=== PATIENT | male | born 1955 | race Caucasian/White ===

== ENCOUNTER 2018-11-28 13:30 | Observation (INO) | payer MEDICARE, BC ==
[~2018-11-28] VITALS: Ht 167.6 cm; Wt 90.0 kg
[~2018-11-28 13:30] MED LIST: ASPI-1044 PO; BLOO1EAC85 MC; DOCU-144 PO; GLIP2.5T3 PO; LANC1COM MC; METF500T9 ORAL; SERT25TA83 ORAL; VALS160T27 ORAL
[2018-12-05] VITALS (25 sets, daily range): BP systolic 105–158; BP diastolic 61–94; PULSE 67–96; RESP 8–18; Ht 167.6 cm; Wt 90.0 kg
[2018-12-05] MEDS ORDERED: LANSOPRAZOLE 30 MG CAP PO ONE (06:00)
[2018-12-05] MEDS ORDERED: DEXAMETHASONE 4 MG/ML 1 ML INJ IV ONE (06:00)
[2018-12-05] MEDS ORDERED: ACETAMINOPHEN 500 MG TAB PO ONE (06:00)
[2018-12-05] MEDS ORDERED: oxyCODONE (CR) 10 MG TAB [oxyCONTIN] PO ONE (06:00)
[2018-12-05] MEDS ORDERED: CEFAZOLIN 1 GM/50 ML (PMX) 50 ML IVPB SCH (06:00)
[2018-12-05] MEDS ORDERED: LACTATED RINGER'S 1,000 ML IV SCH (06:00)
[2018-12-05] MEDS ORDERED: TRANEXAMIC ACID 1GM/100ML(PMX) 100 ML PRE-OP X1 IVPB SCH (06:00)
[2018-12-05] MEDS ORDERED: ONDANSETRON 4 MG INJ IV ONE (06:00)
--- NOTE | 2018-12-05 06:21 | HPN ---
Date/Time of Note Date/Time of Note DATE: 12/05/18 TIME: 06:21 Interval H&P Admission Note Pt. seen H&P reviewed: No system changes LIZZY ROMAN MD Dec 05, 2018 06:21
[2018-12-05] MEDS ORDERED: ACETAMINOPHEN 1000MG/100ML IV 100 ML IVPB ONE (06:30)
[2018-12-05] MEDS ORDERED: BACITRACIN 50000 UNITS INJ ONE (06:56)
[2018-12-05] MEDS ORDERED: POLYMYXIN B 500000 UNIT INJ ONE (06:57)
[2018-12-05] MEDS ORDERED: TRANEXAMIC ACID 1GM/100ML(PMX) 200 ML ONE (07:10)
[2018-12-05] MEDS: SOD CHLORIDE 0.9% 1,000 ML IV SCH ×2 (07:29→12:10)
--- NOTE | 2018-12-05 07:38 | PREAC ---
Date/Time of Note Date/Time of Note DATE: 12/05/18 TIME: 07:36 Anesthesia Eval and Record Evaluation Time Pre-Procedure Interview DATE: 12/05/18 TIME: 07:36 Age 63 Sex male NPO: 8 hrs Preoperative diagnosis ostearitis knee Planned procedure replacement Past Medical History Past Medical History: Includes Cardio: HTN Endo: Diabetes Musculoskeletal: Other (sporiasis ) Psych: Depression, Anxiety Surgery & Anesthesia Issues No known issue Meds Anticoagulation: No Beta Marry within 24 hr: No Reason Beta Marry not given: Pt. not on B-Marry Reported Medications Metformin Hcl (Metformin Hcl ER) 500 Mg Tab.er.24h, 1 TAB ORAL DAILY 12/05/18 Valsartan (Valsartan) 160 Mg Tablet, 1 TAB ORAL DAILY 12/05/18 Sertraline Hcl* (Sertraline Hcl*) 25 Mg Tablet, 1 TAB ORAL DAILY 12/05/18 Current Medications Cefazolin Sodium 50 ml @ 100 mls/hr PRE-OP IVPB ; Start 12/05/18 at 06:00; Stop 12/05/18 at 16:00 Tranexamic Acid 100 ml @ 220 mls/hr PRE-OP IVPB ; Start 12/05/18 at 06:00; Stop 12/05/18 at 16:00 Tranexamic Acid 100 ml @ 200 mls/hr INTRA-OP IVPB ; Start 12/05/18 at 10:00; Stop 12/05/18 at 16:00 Ropivacaine/ Morphine Sulfate/ Clonidine/ Epinephrine/ Ketorolac Tromethamine/ Vancomycin HCl/ Sodium Chloride INTRA-OP INJ ; Start 12/05/18 at 09:00; Stop 12/05/18 at 16:00 Sodium Chloride 1,000 ml @ 125 mls/hr Q8H IV Last administered on 12/05/18at 07:29; Admin Dose 125 MLS/HR; Start 12/05/18 at 07:30 Meds reviewed: Yes Allergies Coded Allergies: No Known Allergy (Unverified , 12/05/18) Allergies Reviewed: Yes Labs/Studies Labs Reviewed: Reviewed by anesthesiologist test: N/A Pre-procedure Exam Last vitals Vital Signs Date Temp Pulse Resp B/P (MAP) Pulse Ox O2 O2 Flow FiO2 Time Delivery Rate 12/05/18 97.4 67 16 158/94 96 Room Air 07:02 (115) Airway: Adequate mouth opening, Adequate thyromental dist Mallampati: Mallampati III Teeth: Normal Lung: Normal Heart: Normal ASA Physical Status ASA physical status: 3 Emergency: None Pre-operative Attestations Prior to commencing anesthesia and surgery, the patient was re-evaluated, there was verification of: *The patient's identity *The results of appropriate recent lab work and preoperative vital signs *The above evaluation not changing prior to induction *Anesthetic plan, risk benefits, alternative and complications discussed with patient/family; questions answered; patient/family understands, accepts and wishes to proceed. JAI WORLEY DO Dec 05, 2018 07:37
[2018-12-05] MEDS ORDERED: FENTAnyl 50 MCG/ML VIAL ONE (07:46)
[2018-12-05] MEDS ORDERED: ETOMIDATE 20 MG INJ ONE (07:46)
[2018-12-05] MEDS ORDERED: MIDAZOLAM 1 MG/ML 2 ML INJ ONE (07:46)
[2018-12-05] MEDS ORDERED: LIDOCAINE 2% (SDV) 5 ML INJ ONE (07:46)
[2018-12-05] MEDS ORDERED: PROPOFOL 20 ML ONE (07:46)
[2018-12-05] MEDS ORDERED: CEFAZOLIN 1 GM INJ ONE (08:00)
[2018-12-05] MEDS ORDERED: HIP PAIN COCKTAIL VANCO INJ SCH ×7 (09:00)
[2018-12-05] MEDS ORDERED: HIP PAIN COCKTAIL (CEFUROXIME) INJ SCH ×7 (10:00)
[2018-12-05] MEDS ORDERED: TRANEXAMIC ACID 1GM/100ML(PMX) 100 ML INTRA-OP X1 IVPB SCH (10:00)
--- NOTE | 2018-12-05 10:12 | SIPON ---
Date/Time of Note Date/Time of Note DATE: 12/05/18 TIME: 10:10 Operative Report Preoperative Diagnosis Left Knee Osteoarthritis Postoperative Diagnosis Same Operation/Procedure Performed Left Total Knee Arthroplasty Surgeon Andreia Hunt MD dental hygiene administrative assistant Nelly Pruitt PA-C Anesthesia: spinal, epidural Estimated blood loss: other Transfusion Required none Specimen Bone Grafts/Implants none Complications none ANDREIA HUNT MD Dec 05, 2018 10:12
--- NOTE | 2018-12-05 10:19 | OPR ---
Date/Time of Note Date/Time of Note DATE: 12/05/18 TIME: 10:16 Operative Report Free Text/Dictation DATE OF OPERATION: December 05, 2018 SURGEON: Lizzy Roman MD MOBILITY SPECIALIST: Nelly Pruitt PA-C PREOPERATIVE DIAGNOSIS: Left knee osteoarthritis. POSTOPERATIVE DIAGNOSIS: Left knee osteoarthritis. PROCEDURES PERFORMED: Left total knee arthroplasty, CPT code 80874. ANESTHESIOLOGIST: Dr. Donahue ANESTHESIA: Spinal. ESTIMATED BLOOD LOSS: 200 mL. COMPLICATIONS: None. SPECIMENS: Resected bone. DISPOSITION: PACU in stable condition. TOURNIQUET TIME: 86 minutes at 250 mmHg. IMPLANT USED: Gottlieb [employer] Nephew size 6 Anne tibial baseplate, size 6 standard posterior stabilized Oxinium femur, size 9 mm high flexion polyethylene, size 35 mm patella. INDICATION FOR PROCEDURE: This is an 63-year-old male with end-stage osteoarthritis of the left knee who had failed nonoperative management. Risks, benefits, alternatives of surgical intervention were discussed with the patient and informed consent was obtained. The risks of surgery include but are not limited to infection, deep venous thrombosis, pulmonary embolism, damage to nerves and blood vessels, numbness around incision site, stiffness of knee, need for total knee manipulation under anesthesia, need for blood transfuion, heart attack, stroke, risks associated with anesthesia, implant loosening, wear of prosthesis, need for revision surgery, and . DESCRIPTION OF PROCEDURE: The patient was met in the preoperative suite. The correct operative site was confirmed and marked. The patient was then brought into operating room. After induction of anesthesia, the patient was placed in the supine position on the operating room table. A tourniquet was applied to left upper thigh. The left lower extremity was prepped and draped in the usual sterile fashion. Before starting, a timeout was taken to identify the correct operative site and confirm preoperative antibiotics consisting of 1 g of IV Ancef, along with 1 g of tranexamic acid were administered. At this point, the left leg was elevated and exsanguinated with an Esmarch and tourniquet was then insufflated for the above noted time. A midline incision was made and median parapatellar arthrotomy was then completed. The lateral patellar retinacular ligaments were released. A sleeve of tissue was released from the medial proximal tibia. The cruciate ligaments and the menisci were then excised. At this point, the custom distal femur cutting block was then pinned and 9.5 mm was resected from the distal femur. The 4-in-1 cutting block, size 6 was then placed. An maria teresa wing was used to confirm that notching of the anterior cortex of the femur would not occur. The anterior and posterior condylar cuts were completed followed by the anterior and posterior chamfer cuts. The osteophytes were then removed with a rongeur. At this point, the tibia was subluxed anteriorly. Appropriate retractors were placed. The custom tibial cutting block was then pinned. The drop was used to ensure the correct alignment. Approximately 11 mm was resected off the lateral tibial plateau and to mm off the medial tibial plateau. Osteophytes were then removed. At this point, the flexion extension gaps were checked with a 9 mm gap tool checker and noted to be tight in extension. Additional 2 mm of distal femur was removed, and additional medial release was performed. Next, trial 6 standard femur was then pinned and the box cut was then completed. The tibia was then subluxed anteriorly and measured to size 6. The tibial tray was then pinned and a keel was then punched. The trial components were placed with a 9 mm polyethylene and noted to have full extension and greater than 120 degrees of flexion. The patella was then subluxed laterally and sized to 24 mm. Approximately, 9 mm was resected. The patellar was sized to a 35 mm. The button was placed and noted to have excellent patellar tracking. The trial components were removed. All bony surfaces were pulse lavaged and dried. The appropriate size components were then cemented and the knee was held in extension with a 9 mm trial polyethylene until the cement cured. Once the cement had cured, the trial polyethylene was removed and the appropriate size polyethylene was then placed. The tranexamic acid was redosed. The cocktail was then injected. The extensor mechanism was closed using #1 Stratafix and the subcutaneous tissue with 2-0 Vicryl and the skin with 4-0 Monocryl. Steri- Strips were applied along with a sterile dressing. There were no complications. The patient was transferred to PACU in stable condition. POSTOPERATIVE CARE: The patient will be weightbearing as tolerated. The patient will work with physical therapy, and will receive two additional doses of IV antibiotics along with aspirin 81 mg p.o. b.i.d. for 6 weeks. Upon discharge, patient will follow up in my office within 2 weeks postoperatively. LIZZY ROMAN MD Dec 05, 2018 10:19
[2018-12-05] MEDS ORDERED: MAGNESIUM HYDROXIDE 30ML CUP PO PRN (10:30)
[2018-12-05] MEDS ORDERED: KETOROLAC 15 MG INJ IV PRN (10:30)
[2018-12-05] MEDS ORDERED: SENNA/DOCUSATE NA (8.6MG/50MG) TAB PO PRN (10:30)
[2018-12-05] MEDS ORDERED: DOCUSATE SODIUM 100 MG CAP PO ONE (10:30)
[2018-12-05] MEDS ORDERED: NALOXONE (0.4 MG/ML) INJ IV PRN (10:30)
[2018-12-05] MEDS ORDERED: NACL 0.9% 3 ML SYG IV SCH (10:30)
[2018-12-05] MEDS ORDERED: BISACODYL 10 MG SUPP PR PRN (10:30)
[2018-12-05] MEDS ORDERED: NA PHOSPHATE/BIPHOS 133 ML ENEMA PR PRN (10:30)
[2018-12-05] MEDS ORDERED: ROPIVACAINE 0.5 % 30 ML VIAL ONE (10:33)
[2018-12-05] MEDS ORDERED: DEXAMETHASONE 4 MG/ML 5 ML INJ ONE (10:34)
--- NOTE | 2018-12-05 10:53 | PAC ---
Date/Time of Note Date/Time of Note DATE: 12/05/18 TIME: 10:52 Post-Anesthesia Notes Post-Anesthesia Note Last documented vital signs Vital Signs Date Temp Pulse Resp B/P (MAP) Pulse Ox O2 O2 Flow FiO2 Time Delivery Rate 12/05/18 98 98 18 115/62 96 Room Air 1555 Activity: WNL Respiratory function: WNL Cardiovascular function: WNL Mental status: Baseline Pain reasonably controlled: Yes Hydration appropriate: Yes Nausea/Vomiting absent: Yes JAI WORLEY DO Dec 05, 2018 10:53
[2018-12-05] MEDS ORDERED: ONDANSETRON 4 MG INJ IV PRN (11:00)
[2018-12-05] MEDS ORDERED: HYDROmorphONE 1 MG/5 ML IV SYRINGE IV PRN ×3 (11:00)
[2018-12-05] MEDS ORDERED: LABETALOL HCL 20MG INJ IV PRN (11:00)
[2018-12-05] MEDS: CEFAZOLIN 2 GM/50 ML (PMX) 50 ML IVPB SCH ×2 (11:13→17:56)
[2018-12-05] MEDS: oxyCODONE 5 MG TAB PO PRN (12:28)
[2018-12-05] MEDS ORDERED: morphine 2 MG INJ IV STA (14:37)
[2018-12-05] MEDS ORDERED: GLUCAGON 1 MG INJ IM PRN (17:30)
[2018-12-05] MEDS ORDERED: DEXTROSE 50% 50 ML SYRINGE IV PRN ×2 (17:30)
[2018-12-05] MEDS ORDERED: GLUCOSE GEL 15 GRAM TUBE BUCCAL PRN (17:30)
[2018-12-05] MEDS ORDERED: GLUCOSE GEL 15 GRAM TUBE PO PRN ×2 (17:30)
--- NOTE | 2018-12-05 17:42 | CONS ---
Assessment/Plan Assessment/Plan Hospital Course (Demo Recall) 63 yo M admitted for elective R total knee arthroplasty for severe R OA for whom we are consulted for medical mgt of his chronic conditions 1. DM 2: start carb controlled diet and SSI, adjust as indicated 2. Episode of renal insufficency vs dehydration 2 weeks ago: -stat BMP, gentle IV hydration, avoid nephrotoxic mes for now, urther interventions per course 3. HTN: on ARB therapy: BP currently wll controlled, resume home meds and adjust as tolerated -further interventions per course 4. Postop urinary retention -bladder scan, in n out cath if neccesary, further interventions per course -Thanks for the Consult. We will follow with you. Consultation Date/Type/Reason Admit Date/Time Dec 05, 2018 at 05:23 Date/Time of Note DATE: 12/05/18 TIME: 17:29 Hx of Present Illness 63 yo M admitted for elective RTKA for severe OA, s/p surgery without significant intraop complications. we are consulted for me mgt. patient complaining of urinary retention and suprapubic pain 12 point review if systems was done and pertinent findings are as noted. Constitutional: chills; No febrile Eyes: no complaints Respiratory: no complaints Gastrointestinal: no complaints Genitourinary: other Neurologic: no complaints Past Medical History Medical History: diabetes, hypertension, other (depression) Home Meds Reported Medications Metformin Hcl (Metformin Hcl ER) 500 Mg Tab.er.24h, 1 TAB ORAL DAILY 12/05/18 Valsartan (Valsartan) 160 Mg Tablet, 1 TAB ORAL DAILY 12/05/18 Sertraline Hcl* (Sertraline Hcl*) 25 Mg Tablet, 1 TAB ORAL DAILY 12/05/18 Medications Current Medications Sodium Chloride 1,000 ml @ 125 mls/hr Q8H IV Last administered on 12/05/18at 12:10; Admin Dose 125 MLS/HR; Start 12/05/18 at 07:30 IV Flush (NS 3 ml) 3 ml PER PROTOCOL IV ; Start 12/05/18 at 10:30 Oxycodone HCl (Roxicodone) 5 mg Q4H PRN PO .PAIN Last administered on 12/05/18at 12:28; Admin Dose 5 MG; Start 12/05/18 at 10:30 Ketorolac Tromethamine (Toradol) 15 mg Q6H PRN IV .PAIN Last administered on 12/05/18at 13:21; Admin Dose 15 MG; Start 12/05/18 at 10:30; Stop 12/07/18 at 10:29 Cefazolin Sodium/ Dextrose 50 ml @ 100 mls/hr Q8H IVPB Last administered on 12/05/18at 11:13; Admin Dose 100 MLS/HR; Start 12/05/18 at 10:30; Stop 12/06/18 at 02:59 Celecoxib (Celebrex) 100 mg BID PO ; Start 12/06/18 at 09:00 Pantoprazole (Protonix Tab) 40 mg DAILY@06 PO ; Start 12/07/18 at 06:00 Docusate Sodium (Colace) 200 mg BID PO ; Start 12/06/18 at 09:00; Stop 12/09/18 at 08:59 Simethicone (Mylicon) 80 mg TID PRN PO .GAS; Start 12/05/18 at 10:30 Senna/Docusate Sodium (Senokot-S) 2 tab BID PRN PO .CONSTIPATION; Start 12/05/18 at 10:30 Magnesium Hydroxide (Milk Of Mag) 30 ml HS PRN PO .CONSTIPATION; Start 12/05/18 at 10:30 Bisacodyl (Dulcolax Supp) 10 mg DAILY PRN AK .CONSTIPATION; Start 12/05/18 at 10:30 Sodium Biphosphate/ Sodium Phosphate (Fleet Enema) 133 ml DAILY PRN [place] .CONSTIPATION; Start 12/05/18 at 10:30 Naloxone HCl (Narcan) 0.2 mg Q2M PRN IV .RESP RATE; Start 12/05/18 at 10:30 Aspirin (Halfprin) 81 mg BID PO ; Start 12/06/18 at 09:00 Hydromorphone HCl (Dilaudid) 0.2 mg PACU PRN IV MILD PAIN 1-3; Start 12/05/18 at 11:00; Stop 12/05/18 at 18:00 Hydromorphone HCl (Dilaudid) 0.4 mg PACU PRN IV MOD PAIN 4-6; Start 12/05/18 at 11:00; Stop 12/05/18 at 18:00 Hydromorphone HCl (Dilaudid) 0.6 mg PACU PRN IV SEVERE PAIN 7-10; Start 12/05/18 at 11:00; Stop 12/05/18 at 18:00 Ondansetron HCl (Zofran Inj) 4 mg PACU ORDER PRN IV NAUSEA/VOMITING; Start 12/05/18 at 11:00; Stop 12/05/18 at 18:00 Labetalol HCl (Labetalol) 5 mg PACU ORDER PRN IV HIGH BLOOD PRESSURE; Start 12/05/18 at 11:00; Stop 12/05/18 at 18:00 Diagnostic Test (Pha) (Accu-Chek) 1 ea 02 XX ; Start 12/06/18 at 02:00 Insulin Aspart (Novolog Insulin Pen) NOVOLOG *MILD* ALGORITHM WITH MEALS BEDTIME SC ; Start 12/05/18 at 17:55 Miscellaneous Information 1 ea NOTE XX ; Start 12/05/18 at 17:30 Glucose (Glutose) 15 gm Q15M PRN PO DECREASED GLUCOSE; Start 12/05/18 at 17:30 Glucose (Glutose) 22.5 gm Q15M PRN PO DECREASED GLUCOSE; Start 12/05/18 at 17:30 Dextrose (D50w Syringe) 25 ml Q15M PRN IV DECREASED GLUCOSE; Start 12/05/18 at 17:30 Dextrose (D50w Syringe) 50 ml Q15M PRN IV DECREASED GLUCOSE; Start 12/05/18 at 17:30 Glucagon (Glucagen) 1 mg Q15M PRN IM DECREASED GLUCOSE; Start 12/05/18 at 17:30 Glucose (Glutose) 15 gm Q15M PRN BUCCAL DECREASED GLUCOSE; Start 12/05/18 at 17:30 Allergies: Coded Allergies: No Known Allergy (Unverified , 12/05/18) Family History Significant Family History: no pertinent family hx Social History Alcohol Use: none Smoking Status: Never smoker Drug Use: none Exam/Review of Systems Exam Vitals Vital Signs Date Temp Pulse Resp B/P (MAP) Pulse Ox O2 O2 Flow FiO2 Time Delivery Rate 12/05/18 98.6 83 18 123/71 98 Room Air 14:40 (88) 12/05/18 2.0 11:54 Constitutional: alert, oriented; No distress Psych: nl mood/affect Head: normocephalic Eyes: PERRL ENMT: mucosa pink and moist Neck: supple Respiratory: clear to auscultation Cardiovascular: regular rate and rhythm Gastrointestinal: soft, distended (mildy) Musculoskeletal: nl extremities to inspection, other (R knee bandaged) Neurological: nl mental status Results Result Diagram: 12/05/18 1537 12/05/18 1537 Results 24hrs Laboratory Tests Test 12/05/18 06:29 12/05/18 14:19 12/05/18 15:37 Bedside Glucose 123 206 White Blood Count 19.1 H Red Blood Count 4.06 L Hemoglobin 12.6 L Hematocrit 37.3 L Mean Corpuscular Volume 91.9 Mean Corpuscular Hemoglobin 31.0 Mean Corpuscular Hemoglobin Concent 33.8 Red Cell Distribution Width 11.9 Platelet Count 308 Mean Platelet Volume 9.8 Immature Granulocytes % 0.500 H Neutrophils % 96.4 H Lymphocytes % 1.9 L Monocytes % 1.0 Eosinophils % 0.0 Basophils % 0.2 Nucleated Red Blood Cells % 0.0 Immature Granulocytes # 0.090 H Neutrophils # 18.4 H Lymphocytes # 0.4 L Monocytes # 0.2 L Eosinophils # 0.0 Basophils # 0.0 Nucleated Red Blood Cells # 0.0 Sodium Level 138 Potassium Level 4.2 Chloride Level 106 Carbon Dioxide Level 21 Anion Gap 11 Blood Urea Nitrogen 13 Creatinine 0.95 Est Glomerular Filtrat Rate mL/min > 60 Glucose Level 196 Hemoglobin A1c 6.3 H Calcium Level 8.4 Imaging Imaging DATE OF OPERATION: December 05, 2018 SURGEON: Andreia Hunt MD DIRECTOR OF RESERVATIONS: Nelly Pruitt PA-C PREOPERATIVE DIAGNOSIS: Left knee osteoarthritis. POSTOPERATIVE DIAGNOSIS: Left knee osteoarthritis. PROCEDURES PERFORMED: Left total knee arthroplasty, CPT code 00600. Medications Medication Current Medications Sodium Chloride 1,000 ml @ 125 mls/hr Q8H IV Last administered on 12/05/18at 12:10; Admin Dose 125 MLS/HR; Start 12/05/18 at 07:30 IV Flush (NS 3 ml) 3 ml PER PROTOCOL IV ; Start 12/05/18 at 10:30 Oxycodone HCl (Roxicodone) 5 mg Q4H PRN PO .PAIN Last administered on 12/05/18at 12:28; Admin Dose 5 MG; Start 12/05/18 at 10:30 Ketorolac Tromethamine (Toradol) 15 mg Q6H PRN IV .PAIN Last administered on 12/05/18at 13:21; Admin Dose 15 MG; Start 12/05/18 at 10:30; Stop 12/07/18 at 10:29 Cefazolin Sodium/ Dextrose 50 ml @ 100 mls/hr Q8H IVPB Last administered on 12/05/18at 11:13; Admin Dose 100 MLS/HR; Start 12/05/18 at 10:30; Stop 12/06/18 at 02:59 Celecoxib (Celebrex) 100 mg BID PO ; Start 12/06/18 at 09:00 Pantoprazole (Protonix Tab) 40 mg DAILY@06 PO ; Start 12/07/18 at 06:00 Docusate Sodium (Colace) 200 mg BID PO ; Start 12/06/18 at 09:00; Stop 12/09/18 at 08:59 Simethicone (Mylicon) 80 mg TID PRN PO .GAS; Start 12/05/18 at 10:30 Senna/Docusate Sodium (Senokot-S) 2 tab BID PRN PO .CONSTIPATION; Start 12/05/18 at 10:30 Magnesium Hydroxide (Milk Of Mag) 30 ml HS PRN PO .CONSTIPATION; Start 12/05/18 at 10:30 Bisacodyl (Dulcolax Supp) 10 mg DAILY PRN [place] .CONSTIPATION; Start 12/05/18 at 10:30 Sodium Biphosphate/ Sodium Phosphate (Fleet Enema) 133 ml DAILY PRN [place] .CONSTIPATION; Start 12/05/18 at 10:30 Naloxone HCl (Narcan) 0.2 mg Q2M PRN IV .RESP RATE; Start 12/05/18 at 10:30 Aspirin (Halfprin) 81 mg BID PO ; Start 12/06/18 at 09:00 Hydromorphone HCl (Dilaudid) 0.2 mg PACU PRN IV MILD PAIN 1-3; Start 12/05/18 at 11:00; Stop 12/05/18 at 18:00 Hydromorphone HCl (Dilaudid) 0.4 mg PACU PRN IV MOD PAIN 4-6; Start 12/05/18 at 11:00; Stop 12/05/18 at 18:00 Hydromorphone HCl (Dilaudid) 0.6 mg PACU PRN IV SEVERE PAIN 7-10; Start 12/05/18 at 11:00; Stop 12/05/18 at 18:00 Ondansetron HCl (Zofran Inj) 4 mg PACU ORDER PRN IV NAUSEA/VOMITING; Start at 11:00; Stop 12/05/18 at 18:00 Labetalol HCl (Labetalol) 5 mg PACU ORDER PRN IV HIGH BLOOD PRESSURE; Start 12/05/18 at 11:00; Stop 12/05/18 at 18:00 Diagnostic Test (Pha) (Accu-Chek) 1 ea 02 XX ; Start 12/06/18 at 02:00 Insulin Aspart (Novolog Insulin Pen) NOVOLOG *MILD* ALGORITHM WITH MEALS BEDTIME SC ; Start 12/05/18 at 17:55 Miscellaneous Information 1 ea NOTE XX ; Start 12/05/18 at 17:30 Glucose (Glutose) 15 gm Q15M PRN PO DECREASED GLUCOSE; Start 12/05/18 at 17:30 Glucose (Glutose) 22.5 gm Q15M PRN PO DECREASED GLUCOSE; Start 12/05/18 at 17:30 Dextrose (D50w Syringe) 25 ml Q15M PRN IV DECREASED GLUCOSE; Start 12/05/18 at 17:30 Dextrose (D50w Syringe) 50 ml Q15M PRN IV DECREASED GLUCOSE; Start 12/05/18 at 17:30 Glucagon (Glucagen) 1 mg Q15M PRN IM DECREASED GLUCOSE; Start 12/05/18 at 17:30 Glucose (Glutose) 15 gm Q15M PRN BUCCAL DECREASED GLUCOSE; Start 12/05/18 at 17:30 ALONDRA CARDOSO Dec 05, 2018 17:39
[2018-12-05] MEDS: INSULIN ASPART [NOVOLOG] 3 ML PEN SC SCH ×2 (18:00→21:32)
[2018-12-05] MEDS: TAMSULOSIN (SR) 0.4 MG CAP PO SCH ×2 (18:04→21:18)
[2018-12-06] MEDS: oxyCODONE 5 MG TAB PO PRN ×4 (00:07→19:46)
[2018-12-06] MEDS ORDERED: ACCU-CHEK XX SCH (02:00)
[2018-12-06 02:15] VITALS: BP 133/71; PULSE 93; RESP 18
[2018-12-06] MEDS: SOD CHLORIDE 0.9% 1,000 ML IV SCH ×2 (02:31→07:30)
[2018-12-06] MEDS: CEFAZOLIN 2 GM/50 ML (PMX) 50 ML IVPB SCH (02:33)
[2018-12-06 07:20] VITALS: BP 122/57; PULSE 95; RESP 18
[2018-12-06] MEDS: morphine 2 MG INJ IV PRN ×2 (08:54→15:51)
[2018-12-06] MEDS: INSULIN ASPART [NOVOLOG] 3 ML PEN SC SCH ×3 (08:57→17:47)
[2018-12-06] MEDS ORDERED: DOCUSATE SODIUM 100 MG CAP PO SCH (09:00)
[2018-12-06] MEDS ORDERED: ASPIRIN (EC) 81 MG TAB PO SCH (09:00)
[2018-12-06] MEDS ORDERED: CELECOXIB 100 MG CAP PO SCH (09:00)
--- NOTE | 2018-12-06 10:42 | PN ---
Date/Time of Note Date/Time of Note DATE: 12/06/18 TIME: 10:40 Assessment/Plan VTE Prophylaxis Risk score (from Nsg)>0 risk: 9 SCD applied (from Nsg): Yes Pharmacological prophylaxis: other (per ortho) Lines/Catheters IV Catheter Type (from Nrsg): Peripheral IV Assessment/Plan Hospital Course S: no new complaints, planned for dc today if stable, was able to urinate and did not require encinas O: Constitutional: alert, oriented; No distress Psych: nl mood/affect Head: normocephalic Eyes: PERRL ENMT: mucosa pink and moist Neck: supple Respiratory: clear to auscultation Cardiovascular: regular rate and rhythm Gastrointestinal: soft, distended (mildy) Musculoskeletal: nl extremities to inspection, other (R knee bandaged) Neurological: nl mental status assessment and plan: 63 yo M admitted for elective R total knee arthroplasty for severe R OA for whom we are consulted for medical mgt of his chronic conditions 1. DM 2: good control on current regimen 2. Episode of renal insufficency vs dehydration 2 weeks ago: good renal function at this time 3. HTN: on ARB therapy: BP currently wll controlled, resume home meds and adjust as tolerated -further interventions per course 4. Postop urinary retention: resolved Patient is cleared for dc from a medical standpoint -Thanks for the Consult. We will follow with you. Result Diagram: 12/06/18 0430 12/06/18 0430 Results 24hrs Laboratory Tests Test 12/05/18 14:19 12/05/18 15:37 12/05/18 17:51 12/05/18 21:21 Bedside Glucose 206 178 230 H White Blood Count 19.1 H Red Blood Count 4.06 L Hemoglobin 12.6 L Hematocrit 37.3 L Mean Corpuscular 91.9 Volume Mean Corpuscular 31.0 Hemoglobin Mean Corpuscular 33.8 Hemoglobin Concent Red Cell 11.9 Distribution Width Platelet Count 308 Mean Platelet 9.8 Volume Immature 0.500 H Granulocytes % Neutrophils % 96.4 H Lymphocytes % 1.9 L Monocytes % 1.0 Eosinophils % 0.0 Basophils % 0.2 Nucleated Red 0.0 Blood Cells % Immature 0.090 H Granulocytes # Neutrophils # 18.4 H Lymphocytes # 0.4 L Monocytes # 0.2 L Eosinophils # 0.0 Basophils # 0.0 Nucleated Red 0.0 Blood Cells # Sodium Level 138 Potassium Level 4.2 Chloride Level 106 Carbon Dioxide 21 Level Anion Gap 11 Blood Urea 13 Nitrogen Creatinine 0.95 Est Glomerular > 60 Filtrat Rate mL/min Glucose Level 196 Hemoglobin A1c 6.3 H Calcium Level 8.4 Test 12/06/18 02:41 12/06/18 04:30 12/06/18 07:19 12/06/18 08:48 Bedside Glucose 195 163 White Blood Count 15.7 H Red Blood Count 3.48 L Hemoglobin 10.7 L Hematocrit 32.0 L Mean Corpuscular 92.0 Volume Mean Corpuscular 30.7 Hemoglobin Mean Corpuscular 33.4 Hemoglobin Concent Red Cell 12.0 Distribution Width Platelet Count 278 Mean Platelet 9.9 Volume Immature 0.400 Granulocytes % Neutrophils % 88.9 H Lymphocytes % 5.1 L Monocytes % 5.5 Eosinophils % 0.0 Basophils % 0.1 Nucleated Red 0.0 Blood Cells % Immature 0.060 H Granulocytes # Neutrophils # 13.9 H Lymphocytes # 0.8 Monocytes # 0.9 Eosinophils # 0.0 Basophils # 0.0 Nucleated Red 0.0 Blood Cells # Sodium Level 139 Potassium Level 4.4 Chloride Level 106 Carbon Dioxide 24 Level Anion Gap 9 Blood Urea 13 Nitrogen Creatinine 0.81 Est Glomerular > 60 Filtrat Rate mL/min Glucose Level 159 Calcium Level 8.5 Triglycerides 124 Level Cholesterol Level 138 LDL Cholesterol, 88 Calculated HDL Cholesterol 25 L Cholesterol/HDL 5.5 Ratio Lab Scanned Report REFERENCE LAB Exam/Review of Systems Exam Vitals Vital Signs Date Temp Pulse Resp B/P (MAP) Pulse Ox O2 O2 Flow FiO2 Time Delivery Rate 12/06/18 98.0 95 18 122/57 95 07:20 (78) 12/05/18 Room Air 14:40 12/05/18 2.0 11:54 Intake and Output 12/05/18 12/05/18 12/06/18 1515:00 23:00 07:00 IntakeIntake Total 3200 ml 1390 ml 1240 ml OutputOutput Total 100 ml 850 ml 800 ml BalanceBalance 3100 ml 540 ml 440 ml Exam Constitutional: alert, oriented; No distress Psych: nl mood/affect Head: normocephalic Eyes: PERRL ENMT: mucosa pink and moist Neck: supple Respiratory: clear to auscultation Cardiovascular: regular rate and rhythm Gastrointestinal: soft, distended (mildy) Musculoskeletal: nl extremities to inspection, other (R knee bandaged) Neurological: nl mental status Results Results 24hrs Laboratory Tests Test 12/05/18 14:19 12/05/18 15:37 12/05/18 17:51 12/05/18 21:21 Bedside Glucose 206 178 230 H White Blood Count 19.1 H Red Blood Count 4.06 L Hemoglobin 12.6 L Hematocrit 37.3 L Mean Corpuscular 91.9 Volume Mean Corpuscular 31.0 Hemoglobin Mean Corpuscular 33.8 Hemoglobin Concent Red Cell 11.9 Distribution Width Platelet Count 308 Mean Platelet 9.8 Volume Immature 0.500 H Granulocytes % Neutrophils % 96.4 H Lymphocytes % 1.9 L Monocytes % 1.0 Eosinophils % 0.0 Basophils % 0.2 Nucleated Red 0.0 Blood Cells % Immature 0.090 H Granulocytes # Neutrophils # 18.4 H Lymphocytes # 0.4 L Monocytes # 0.2 L Eosinophils # 0.0 Basophils # 0.0 Nucleated Red 0.0 Blood Cells # Sodium Level 138 Potassium Level 4.2 Chloride Level 106 Carbon Dioxide 21 Level Anion Gap 11 Blood Urea 13 Nitrogen Creatinine 0.95 Est Glomerular > 60 Filtrat Rate mL/min Glucose Level 196 Hemoglobin A1c 6.3 H Calcium Level 8.4 Test 12/06/18 02:41 12/06/18 04:30 12/06/18 07:19 12/06/18 08:48 Bedside Glucose 195 163 White Blood Count 15.7 H Red Blood Count 3.48 L Hemoglobin 10.7 L Hematocrit 32.0 L Mean Corpuscular 92.0 Volume Mean Corpuscular 30.7 Hemoglobin Mean Corpuscular 33.4 Hemoglobin Concent Red Cell 12.0 Distribution Width Platelet Count 278 Mean Platelet 9.9 Volume Immature 0.400 Granulocytes % Neutrophils % 88.9 H Lymphocytes % 5.1 L Monocytes % 5.5 Eosinophils % 0.0 Basophils % 0.1 Nucleated Red 0.0 Blood Cells % Immature 0.060 H Granulocytes # Neutrophils # 13.9 H Lymphocytes # 0.8 Monocytes # 0.9 Eosinophils # 0.0 Basophils # 0.0 Nucleated Red 0.0 Blood Cells # Sodium Level 139 Potassium Level 4.4 Chloride Level 106 Carbon Dioxide 24 Level Anion Gap 9 Blood Urea 13 Nitrogen Creatinine 0.81 Est Glomerular > 60 Filtrat Rate mL/min Glucose Level 159 Calcium Level 8.5 Triglycerides 124 Level Cholesterol Level 138 LDL Cholesterol, 88 Calculated HDL Cholesterol 25 L Cholesterol/HDL 5.5 Ratio Lab Scanned Report REFERENCE LAB Medications Medication Current Medications Sodium Chloride 1,000 ml @ 125 mls/hr Q8H IV Last administered on 12/06/18at 02:31; Admin Dose 125 MLS/HR; Start 12/05/18 at 07:30 IV Flush (NS 3 ml) 3 ml PER PROTOCOL IV ; Start 12/05/18 at 10:30 Oxycodone HCl (Roxicodone) 5 mg Q4H PRN PO .PAIN Last administered on 12/06/18at 08:12; Admin Dose 5 MG; Start 12/05/18 at 10:30 Celecoxib (Celebrex) 100 mg BID PO Last administered on 12/06/18at 08:54; Admin Dose 100 MG; Start 12/06/18 at 09:00 Pantoprazole (Protonix Tab) 40 mg DAILY@06 PO ; Start 12/07/18 at 06:00 Docusate Sodium (Colace) 200 mg BID PO Last administered on 12/06/18at 08:53; Admin Dose 200 MG; Start 12/06/18 at 09:00; Stop 12/09/18 at 08:59 Simethicone (Mylicon) 80 mg TID PRN PO .GAS; Start 12/05/18 at 10:30 Senna/Docusate Sodium (Senokot-S) 2 tab BID PRN PO .CONSTIPATION; Start 12/05/18 at 10:30 Magnesium Hydroxide (Milk Of Mag) 30 ml HS PRN PO .CONSTIPATION; Start 12/05/18 at 10:30 Bisacodyl (Dulcolax Supp) 10 mg DAILY PRN [place] .CONSTIPATION; Start 12/05/18 at 10:30 Sodium Biphosphate/ Sodium Phosphate (Fleet Enema) 133 ml DAILY PRN [place] .CONSTIPATION; Start 12/05/18 at 10:30 Naloxone HCl (Narcan) 0.2 mg Q2M PRN IV .RESP RATE; Start 12/05/18 at 10:30 Aspirin (Halfprin) 81 mg BID PO Last administered on 12/06/18at 08:54; Admin Dose 81 MG; Start 12/06/18 at 09:00 Diagnostic Test (Pha) (Accu-Chek) 1 ea 02 XX ; Start 12/06/18 at 02:00 Insulin Aspart (Novolog Insulin Pen) NOVOLOG *MILD* ALGORITHM WITH MEALS BEDTIME SC Last administered on 12/06/18at 08:57; Admin Dose 1 UNIT; Start 12/05/18 at 17:55 Miscellaneous Information 1 ea NOTE XX ; Start 12/05/18 at 17:30 Glucose (Glutose) 15 gm Q15M PRN PO DECREASED GLUCOSE; Start 12/05/18 at 17:30 Glucose (Glutose) 22.5 gm Q15M PRN PO DECREASED GLUCOSE; Start 12/05/18 at 17:30 Dextrose (D50w Syringe) 25 ml Q15M PRN IV DECREASED GLUCOSE; Start 12/05/18 at 17:30 Dextrose (D50w Syringe) 50 ml Q15M PRN IV DECREASED GLUCOSE; Start 12/05/18 at 17:30 Glucagon (Glucagen) 1 mg Q15M PRN IM DECREASED GLUCOSE; Start 12/05/18 at 17:30 Glucose (Glutose) 15 gm Q15M PRN BUCCAL DECREASED GLUCOSE; Start 12/05/18 at 17 :30 Tamsulosin HCl (Flomax) 0.4 mg HS PO Last administered on 12/05/18at 21:18; Admin Dose 0.4 MG; Start 12/05/18 at 17:00 Morphine Sulfate (morphine) 2 mg Q4H PRN IV SEVERE PAIN LEVEL 7-10 Last admi nistered on 12/06/18at 08:54; Admin Dose 2 MG; Start 12/05/18 at 17:00 ALONDRA CARDOSO Dec 06, 2018 10:42
[2018-12-06 14:33] VITALS: BP 131/72; PULSE 73; RESP 16
--- NOTE | 2018-12-06 17:41 | PDOCDIS ---
Discharge Instructions CONDITION [id number] Patient Condition: [id number] Stable HOME CARE INSTRUCTIONS: [id number] Diet Instructions: [id number] Low Fat /Cholesterol ACTIVITY: [id number] Activity Restrictions: [id number] Slowly Increase Activity Rest between Activity FOLLOW UP/APPOINTMENTS Follow-up Plan 1. Followup with your primary doctor within the next 1-2 weeks. If you don't have one please let someone know, we can give you resources that may help you pick one. You may call either of the following doctors. Let them know you were reffered by Dr. Cardoso Name, Degree: Scottie Doll MD Specialty : Internal Medicine Office Address : [address] [place] [address] [address] [place] [address] Office Office Name, Degree : Jimenez Gallegos MD Specialty : Internal Medicine Office Address : [address] [place] [id number] Office Office You may also call your insurance company to assign one to you. 2. Review your medication list with your nurse before leaving and if you need new prescriptions please let your nurse know. 3. I may have made changes to your home medications or given you new prescriptions, please let your primary doctor know as well. 4. Stay compliant with your medications and report any side effects to your PCP or pharmacist. 5. Return to the ER if you have any concerns and cannot reach your doctors or ca ll your insurance company, they usually have a nurse that can help you. 6. Followup with the Orthopedic surgeon as he has instructed you to. REFERRALS Other Referrals The hospitalist who care for you is Dr. Gustavo Cardoso [phone] . GUSTAVO CARDOSO Dec 06, 2018 17:41
--- NOTE | 2018-12-06 17:44 | PN ---
Date/Time of Note Date/Time of Note DATE: 12/06/18 TIME: 10:41 Assessment/Plan VTE Prophylaxis Risk score (from Ns)>0 risk: 9 SCD applied (from Nsg): Yes Pharmacological prophylaxis: other (per ortho ) Lines/Catheters IV Catheter Type (from Nrsg): Peripheral IV Urinary Cath still in place: No Assessment/Plan Hospital Course 63 yo M admitted for elective R total knee arthroplasty for severe R OA for whom we are consulted for medical mgt of his chronic conditions 1. DM 2: required only 4 units of supplemental insulin overnight, will discharge o low dose glipizide 2. Episode of renal insufficency vs dehydration 2 weeks ago: -goo renal function at this time. 3. HTN: on ARB therapy: continue home ARB 4. Postop urinary retention -resolved -patient is cleared for dc from medical standpoint Result Diagram: 12/06/18 0430 12/06/18 0430 Results 24hrs Laboratory Tests Test 12/05/18 17:51 12/05/18 21:21 12/06/18 02:41 12/06/18 04:30 Bedside Glucose 178 230 H 195 White Blood Count 15.7 H Red Blood Count 3.48 L Hemoglobin 10.7 L Hematocrit 32.0 L Mean Corpuscular 92.0 Volume Mean Corpuscular 30.7 Hemoglobin Mean Corpuscular 33.4 Hemoglobin Concent Red Cell 12.0 Distribution Width Platelet Count 278 Mean Platelet Volume 9.9 Immature 0.400 Granulocytes % Neutrophils % 88.9 H Lymphocytes % 5.1 L Monocytes % 5.5 Eosinophils % 0.0 Basophils % 0.1 Nucleated Red Blood 0.0 Cells % Immature 0.060 H Granulocytes # Neutrophils # 13.9 H Lymphocytes # 0.8 Monocytes # 0.9 Eosinophils # 0.0 Basophils # 0.0 Nucleated Red Blood 0.0 Cells # Sodium Level 139 Potassium Level 4.4 Chloride Level 106 Carbon Dioxide Level 24 Anion Gap 9 Blood Urea Nitrogen 13 Creatinine 0.81 Est Glomerular > 60 Filtrat Rate mL/min Glucose Level 159 Calcium Level 8.5 Triglycerides Level 124 Cholesterol Level 138 LDL Cholesterol, 88 Calculated HDL Cholesterol 25 L Cholesterol/HDL 5.5 Ratio Test 12/06/18 07:19 12/06/18 08:48 12/06/18 12:49 Lab Scanned Report REFERENCE LAB Bedside Glucose 163 192 Subjective 24 Hr Interval Summary Free Text/Dictation feels well, no new issues, no further urinary issues Exam/Review of Systems Exam Vitals Vital Signs Date Temp Pulse Resp B/P (MAP) Pulse Ox O2 O2 Flow FiO2 Time Delivery Rate 12/06/18 98.0 73 16 131/72 96 14:33 (91) 12/05/18 Room Air 14:40 12/05/18 2.0 11:54 Intake and Output 12/05/18 12/05/18 12/06/18 1515:00 23:00 07:00 IntakeIntake Total 3200 ml 1390 ml 1240 ml OutputOutput Total 100 ml 850 ml 800 ml BalanceBalance 3100 ml 540 ml 440 ml Exam Constitutional: alert, oriented Head: atraumatic, normocephalic Neck: non-tender, supple Respiratory: clear to auscultation Cardiovascular: regular rate and rhythm Gastrointestinal: S/ NT / ND / +BS Extremities : moving all extremities Results Results 24hrs Laboratory Tests Test 12/05/18 17:51 12/05/18 21:21 12/06/18 02:41 12/06/18 04:30 Bedside Glucose 178 230 H 195 White Blood Count 15.7 H Red Blood Count 3.48 L Hemoglobin 10.7 L Hematocrit 32.0 L Mean Corpuscular 92.0 Volume Mean Corpuscular 30.7 Hemoglobin Mean Corpuscular 33.4 Hemoglobin Concent Red Cell 12.0 Distribution Width Platelet Count 278 Mean Platelet Volume 9.9 Immature 0.400 Granulocytes % Neutrophils % 88.9 H Lymphocytes % 5.1 L Monocytes % 5.5 Eosinophils % 0.0 Basophils % 0.1 Nucleated Red Blood 0.0 Cells % Immature 0.060 H Granulocytes # Neutrophils # 13.9 H Lymphocytes # 0.8 Monocytes # 0.9 Eosinophils # 0.0 Basophils # 0.0 Nucleated Red Blood 0.0 Cells # Sodium Level 139 Potassium Level 4.4 Chloride Level 106 Carbon Dioxide Level 24 Anion Gap 9 Blood Urea Nitrogen 13 Creatinine 0.81 Est Glomerular > 60 Filtrat Rate mL/min Glucose Level 159 Calcium Level 8.5 Triglycerides Level 124 Cholesterol Level 138 LDL Cholesterol, 88 Calculated HDL Cholesterol 25 L Cholesterol/HDL 5.5 Ratio Test 12/06/18 07:19 12/06/18 08:48 12/06/18 12:49 Lab Scanned Report REFERENCE LAB Bedside Glucose 163 192 Medications Medication Current Medications Sodium Chloride 1,000 ml @ 125 mls/hr Q8H IV Last administered on 12/06/18at 02:31; Admin Dose 125 MLS/HR; Start 12/05/18 at 07:30 IV Flush (NS 3 ml) 3 ml PER PROTOCOL IV ; Start 12/05/18 at 10:30 Oxycodone HCl (Roxicodone) 5 mg Q4H PRN PO .PAIN Last administered on 12/06/18at 12:48; Admin Dose 5 MG; Start 12/05/18 at 10:30 Celecoxib (Celebrex) 100 mg BID PO Last administered on 12/06/18at 08:54; Admin Dose 100 MG; Start 12/06/18 at 09:00 Pantoprazole (Protonix Tab) 40 mg DAILY@06 PO ; Start 12/07/18 at 06:00 Docusate Sodium (Colace) 200 mg BID PO Last administered on 12/06/18at 08:53; Admin Dose 200 MG; Start 12/06/18 at 09:00; Stop 12/09/18 at 08:59 Simethicone (Mylicon) 80 mg TID PRN PO .GAS; Start 12/05/18 at 10:30 Senna/Docusate Sodium (Senokot-S) 2 tab BID PRN PO .CONSTIPATION; Start 12/05 at 10:30 Magnesium Hydroxide (Milk Of Mag) 30 ml HS PRN PO .CONSTIPATION; Start 12/05/18 at 10:30 Bisacodyl (Dulcolax Supp) 10 mg DAILY PRN [place] .CONSTIPATION; Start 12/05/18 at 10:30 Sodium Biphosphate/ Sodium Phosphate (Fleet Enema) 133 ml DAILY PRN [place] .CONSTIPATION; Start 12/05/18 at 10:30 Naloxone HCl (Narcan) 0.2 mg Q2M PRN IV .RESP RATE; Start 12/05/18 at 10:30 Aspirin (Halfprin) 81 mg BID PO Last administered on 12/06/18at 08:54; Admin Dose 81 MG; Start 12/06/18 at 09:00 Diagnostic Test (Pha) (Accu-Chek) 1 ea 02 XX ; Start 12/06/18 at 02:00 Insulin Aspart (Novolog Insulin Pen) NOVOLOG *MILD* ALGORITHM WITH MEALS BEDTIME SC Last administered on 12/06/18at 12:53; Admin Dose 2 UNIT; Start 12/05/18 at 17:55 Miscellaneous Information 1 ea NOTE XX ; Start 12/05/18 at 17:30 Glucose (Glutose) 15 gm Q15M PRN PO DECREASED GLUCOSE; Start 12/05/18 at 17:30 Glucose (Glutose) 22.5 gm Q15M PRN PO DECREASED GLUCOSE; Start 12/05/18 at 17:30 Dextrose (D50w Syringe) 25 ml Q15M PRN IV DECREASED GLUCOSE; Start 12/05/18 at 17:30 Dextrose (D50w Syringe) 50 ml Q15M PRN IV DECREASED GLUCOSE; Start 12/05/18 at 17:30 Glucagon (Glucagen) 1 mg Q15M PRN IM DECREASED GLUCOSE; Start 12/05/18 at 17:30 Glucose (Glutose) 15 gm Q15M PRN BUCCAL DECREASED GLUCOSE; Start 12/05/18 at 17:30 Tamsulosin HCl (Flomax) 0.4 mg HS PO Last administered on 12/05/18at 21:18; Admin Dose 0.4 MG; Start 12/05/18 at 17:00 Morphine Sulfate (morphine) 2 mg Q4H PRN IV SEVERE PAIN LEVEL 7-10 Last administered on 12/06/18at 15:51; Admin Dose 2 MG; Start 12/05/18 at 17:00 ALONDRA CARDOSO Dec 06, 2018 17:44
[2018-12-06 19:20] VITALS: BP 141/76; PULSE 88; RESP 18
[2018-12-07] MEDS ORDERED: PANTOPRAZOLE (EC) 40 MG TAB PO SCH (06:00)
== END 2018-12-06 20:50 | disposition home health service (06) ==
LOC: INTOOBSV 12-05 05:23 → REC 12-05 05:23 → MS1 12-05 12:02
PROVIDERS: ADMIT Orthopaedic Surgery Adult Reconstructive Orthopaedic Surgery; ATTEND Orthopaedic Surgery Adult Reconstructive Orthopaedic Surgery
DX: M17.12 Unilateral primary osteoarthritis, left knee (principal); E11.9 Type 2 diabetes mellitus without complications; I10 Essential (primary) hypertension; Z79.84 Long term (current) use of oral hypoglycemic drugs; R33.8 Other retention of urine
CPT/HCPCS: 27447; 73560; 80048; 80061; 82962; 83036; 85025; 86850; 86900; 86901; 88304; 88311; 97116; 97162; 97530; C1713; C1776; G0378; J0131; J0171; J0690; J0697; J0735; J1100; J1815; J1885; J2250; J2270; J2274; J2405; J2795; J3010; J3370; J7030; J7120; 99217